=== PATIENT | male | born 1955 | race Caucasian/White ===

== ENCOUNTER → 2016-09-29 | Day surgery (SDC) | payer BC ==
[~2016-09-29] MED LIST: ACETAMINOPHEN325 MG PO; ACTOPLUS MET 11 EAC1 PO; BACTRIM DS TAB1 EACH PO; CARAFATE1 GM PO; FLOMAX0.4 MG PO; HYDROCODON-ACE1 EAC4 PO; KEFLEX500 MG PO; LIPITOR20 MG PO; OMEPRAZOLE40 MG PO; ZANTAC300 MG PO
== END | disposition home or self-care (01) ==
LOC: SDCH 09-08 08:00
DX: K29.80 Duodenitis without bleeding (principal); K20.9 Esophagitis, unspecified; K44.9 Diaphragmatic hernia without obstruction or gangrene; K57.30 Diverticulosis of large intestine without perforation or abscess without bleeding; K64.8 Other hemorrhoids; E11.9 Type 2 diabetes mellitus without complications; I10 Essential (primary) hypertension; E78.00 Pure hypercholesterolemia, unspecified; G43.909 Migraine, unspecified, not intractable, without status migrainosus; E66.01 Morbid (severe) obesity due to excess calories; Z79.899 Other long term (current) drug therapy
CPT/HCPCS: J2704